=== PATIENT | male | born 1960 | race Caucasian/White ===

== ENCOUNTER 2024-03-18 11:59 | Inpatient (IN) | payer OTHER ==
[2024-03-18 13:40] LABS: VENOUS O2 SATURATION 67.7 % (70-80); VENOUS PCO2 18.3 mmHg (38-52); VENOUS PH 7.006 (7.310-7.410)
[2024-03-18] MEDS: SODIUM CHLORIDE 0.9% 500 ML INFUS.BAG IV ONE (13:43)
[2024-03-18 13:45] LABS: HEMATOCRIT 43.6 % (35.4-49); HEMOGLOBIN 13.1 GM/dL (11.7-16.9); MCH 22.9 pg (25.7-33.7); MEAN CELL VOLUME 76.4 fl (80-96); MEAN PLT VOLUME 8.5 fl (7.5-11.1); PLATELET COUNT 321 10^3/uL (134-434); RBC 5.71 M/mm3 (4.00-5.60); RDW 17.3 % (11.9-15.9)
[2024-03-18 13:45] LABS: VENOUS BASE EXCESS -25.1 mmol/L (-2-2)
[2024-03-18 13:59] LABS: INR 1.16 (0.83-1.09); PROTHROMBIN TIME (PATIENT) 13.3 SEC (9.7-13.0)
[2024-03-18 14:01] LABS: ACTIVATED PTT 36.4 SECONDS (25.2-36.5)
[2024-03-18 14:06] LABS: EPI CELLS 3 /uL (0-25.1); HYALINE CASTS 1 /uL (0-3.1); URINE APPEARANCE CLEAR; URINE BACTERIA 10 /uL (0-1359); URINE BILIRUBIN NEGATIVE (NEGATIVE); URINE COLOR YELLOW; URINE GLUCOSE (UA) 3+ (NEGATIVE); URINE KETONE 4+ (NEGATIVE); URINE LEUK ESTERASE NEGATIVE (NEGATIVE); URINE NITRITE NEGATIVE (NEGATIVE); URINE PROTEIN 1+ (NEGATIVE); URINE RBC 25 /uL (0-23.9); URINE UROBILINOGEN 0.2 mg/dL (0.2-1.0); URINE WBC 4 /uL (0-25.8)
[2024-03-18] MEDS: LACTATED RINGERS SOLUTION 1000 ML INFUS.BAG IV ONE ×2 (14:11→16:33)
[2024-03-18 14:19] LABS: ANISOCYTOSIS 0; HELMET CELLS 0; HOWELL-JOLLY BODIES 0; MACROCYTOSIS 0; OVALOCYTE 0; ROULEAU 0; SICKELED CELLS 0; TARGET CELLS 0; TEAR DROP CELLS 0; TOXIC GRANULATION 0
[2024-03-18 14:22] LABS: LACTIC ACID 4.8 mmol/L (0.4-2.0)
[2024-03-18] MEDS ORDERED: ACETAMINOPHEN INJECTION 100 ML ONE (14:36)
[2024-03-18 14:41] LABS: CALCIUM 9.4 mg/dL (8.5-10.1); CHLORIDE 84 mmol/L (98-107); POTASSIUM 4.3 mmol/L (3.5-5.1); SODIUM 121 mmol/L (136-145)
[2024-03-18 14:43] LABS: ALBUMIN 3.6 g/dl (3.4-5.0); ANION GAP 33 mmol/L (4-13); CO2 5 mmol/L (21-32)
[2024-03-18 14:44] LABS: BLOOD UREA NITROGEN 38.6 mg/dL (7-18)
[2024-03-18] MEDS: ACETAMINOPHEN 1000 MG/100 ML BAG IVPB ONE ×2 (14:45→16:15)
[2024-03-18 14:46] LABS: CREATININE 1.8 mg/dL (0.55-1.3); SGPT/ALT 11 U/L (13-61)
[2024-03-18 14:47] LABS: SGOT/AST 7 U/L (15-37)
[2024-03-18] MEDS ORDERED: VANCOMYCIN 1 GM PREMIX (F) 1 GM/200 ML BAG ONE (14:47)
[2024-03-18] MEDS ORDERED: PIPERACILLIN/TAZOB 4.5 GM 4.5 GM/100 ML BAG IVPB ONE (14:47)
[2024-03-18 14:48] LABS: BILIRUBIN,TOTAL 1.2 mg/dL (0.2-1); TOT PROT 8.9 g/dl (6.4-8.2)
[2024-03-18 14:49] LABS: ALK PHOS 114 U/L (45-117)
[2024-03-18 14:51] LABS: N-TERMINAL BNP 281.6 pg/ml (5-125)
[2024-03-18 15:16] LABS: GLUCOSE,RANDOM 914 mg/dL (74-106); PHOSPHOROUS 8.5 mg/dL (2.5-4.9)
[2024-03-18] MEDS: SODIUM CHLORIDE 0.9% 1000 ML INFUS.BAG IV STA (15:41)
[2024-03-18] MEDS: PIPERACILLIN/TAZOB 4.5 GM 4.5 GM in DEXTROSE 5%-WATER 100 ML IVPB ONE (15:41)
[2024-03-18 15:50] LABS: LACTIC ACID 3.2 mmol/L (0.4-2.0)
[2024-03-18] MEDS: VANCOMYCIN PREMIX 1.5 GM 1,500 MG/300 ML BAG IVPB ONE (16:15)
[2024-03-18] MEDS: VANCOMYCIN HCL 1,500 MG in DEXTROSE 5%-WATER - 500 ML IVPB ONE (16:15)
[2024-03-18] MEDS ORDERED: DEXTROSE 50%-WATER - 25 GM/50 ML VIAL IVPUSH PRN (16:36)
[2024-03-18] MEDS ORDERED: LACTATED RINGERS SOLUTION 1,000 ML with POTASSIUM CHLORIDE 20 MEQ IV ONE (16:39)
[2024-03-18] MEDS ORDERED: INSULIN REGULAR HUMAN 100 UNITS/ML *VIAL ONE ×4 (16:44→16:46)
[2024-03-18] MEDS: INSULIN REGULAR HUMAN 100 UNITS/ML *VIAL* (FOR IVP) IVPUSH ONE (16:50)
[2024-03-18] MEDS: INSULIN REGULAR 100 UNITS in SODIUM CHLORIDE 99 ML IVPB SCH (17:32)
[2024-03-18 18:38] VITALS: BMI 28.1
[2024-03-18] MEDS: POTASSIUM CHLORIDE 20 MEQ in LACTATED RINGERS SOLUTION 1,000 ML IV ONE (18:39)
[2024-03-18] MEDS ORDERED: dilTIAZem HCL 125 MG/25 ML - 25 ML VIAL ONE (18:40)
[2024-03-18] MEDS: dilTIAZem HCL 50 MG/10 ML - 10 ML VIAL IVPUSH ONE ×2 (18:43→19:00)
[2024-03-18] MEDS: LACTATED RINGERS SOLUTION 1,000 ML/1,000 ML INFUS.BAG IV SCH (19:56)
[2024-03-18 20:25] LABS: HIV INTERPRETATION NEGATIVE (NEGATIVE)
[2024-03-18 22:02] LABS: CHLORIDE 96 mmol/L (98-107); POTASSIUM 4.4 mmol/L (3.5-5.1); SODIUM 131 mmol/L (136-145)
[2024-03-18 22:04] LABS: ANION GAP 31 mmol/L (4-13); BLOOD UREA NITROGEN 41.8 mg/dL (7-18); CALCIUM 8.6 mg/dL (8.5-10.1); CO2 4 mmol/L (21-32)
[2024-03-18] MEDS: ENOXAPARIN NA (PORCINE) 40 MG/0.4 ML DISP.SYRIN SQ SCH (22:04)
[2024-03-18 22:05] LABS: LACTIC ACID 2.7 mmol/L (0.4-2.0)
[2024-03-18 22:08] LABS: CREATININE 1.4 mg/dL (0.55-1.3)
[2024-03-18 22:19] LABS: GLUCOSE,RANDOM 710 mg/dL (74-106)
[2024-03-18] MEDS: dilTIAZem HCL 50 MG/10 ML - 10 ML VIAL IVPUSH PRN (22:46)
[2024-03-18] MEDS: SODIUM CHLORIDE 0.9%/KCL 20 MEQ/1,000 ML INFUS.BAG IV SCH (22:50)
[2024-03-18] MEDS ORDERED: MAG HYDROX/AL HYDROX/SIMETH -MYLANTA- ORAL SUSPENSION PO ONE (23:05)
[2024-03-18] MEDS: ZOLPIDEM TARTRATE 5 MG TABLET PO ONE (23:09)
[2024-03-18] MEDS: MAG HYDROX/AL HYDROX/SIMETH 30 ML UNIT-DOSE CUP PO ONE (23:10)
[2024-03-19 01:45] LABS: CHLORIDE 115 mmol/L (98-107); SODIUM 141 mmol/L (136-145)
[2024-03-19 01:46] LABS: BLOOD UREA NITROGEN 33.5 mg/dL (7-18); CO2 8 mmol/L (21-32); GLUCOSE,RANDOM 298 mg/dL (74-106)
[2024-03-19 01:50] LABS: CREATININE 0.9 mg/dL (0.55-1.3)
[2024-03-19 02:40] LABS: ANION GAP 18 mmol/L (4-13); CALCIUM 6.9 mg/dL (8.5-10.1); POTASSIUM 2.5 mmol/L (3.5-5.1)
[2024-03-19] MEDS: KCL 10 MEQ IVPB 10 MEQ/100 ML INFUS.BAG IVPB SCH (02:55)
[2024-03-19] MEDS: POTASSIUM CHLORIDE ORAL LIQUID 20 MEQ/15 ML PO ONE (02:55)
[2024-03-19] MEDS ORDERED: hydrALAZINE HCL 20 MG/ML VIAL ONE (04:56)
[2024-03-19 06:50] LABS: HEMOGLOBIN 13.8 GM/dL (11.7-16.9); MCH 22.9 pg (25.7-33.7); MCHC 32.1 g/dl (32.0-35.9); MEAN CELL VOLUME 71.4 fl (80-96); MEAN PLT VOLUME 7.4 fl (7.5-11.1); PLATELET COUNT 314 10^3/uL (134-434); RBC 6.02 M/mm3 (4.00-5.60); RDW 17.5 % (11.9-15.9); WHITE BLOOD COUNT 20.3 K/mm3 (4.0-10.0)
[2024-03-19 08:03] LABS: POTASSIUM 4.2 mmol/L (3.5-5.1)
[2024-03-19 08:05] LABS: BLOOD UREA NITROGEN 35.8 mg/dL (7-18); CALCIUM 8.6 mg/dL (8.5-10.1); MAGNESIUM 2.1 mg/dL (1.8-2.4)
[2024-03-19 08:08] LABS: CREATININE 1.1 mg/dL (0.55-1.3)
[2024-03-19 08:10] LABS: BILIRUBIN,TOTAL 0.9 mg/dL (0.2-1); TOT PROT 7.4 g/dl (6.4-8.2)
[2024-03-19] MEDS: ONDANSETRON 4 MG/2 ML VIAL IVPUSH PRN (08:12)
[2024-03-19 08:54] LABS: VENOUS BASE EXCESS -18.6 mmol/L (-2-2); VENOUS O2 SATURATION 77.6 % (70-80); VENOUS PCO2 19.2 mmHg (38-52)
[2024-03-19 08:56] LABS: VENOUS PH 7.196 (7.310-7.410)
[2024-03-19] MEDS: CEFTRIAXONE 1 G/50 ML PREMIX 50 ML IVPB SCH (09:20)
[2024-03-19 10:49] LABS: ANISOCYTOSIS 0; HELMET CELLS 0; HOWELL-JOLLY BODIES 0; MACROCYTOSIS 0; OVALOCYTE 0; ROULEAU 0; SICKELED CELLS 0; TARGET CELLS 0; TEAR DROP CELLS 0; TOXIC GRANULATION 0
[2024-03-19] MEDS: methaDONE HCL 10 MG TABLET PO ONE ×2 (10:52→17:22)
[2024-03-19] MEDS: INSULIN REGULAR 100 UNITS in SODIUM CHLORIDE 99 ML IVPB SCH (15:25)
[2024-03-19] MEDS: D5-1/2NS+20 MEQ KCL - 20 MEQ/1,000 ML INFUS.BAG IV SCH (15:29)
[2024-03-19 16:07] LABS: POTASSIUM 3.7 mmol/L (3.5-5.1)
[2024-03-19 16:10] LABS: ALBUMIN 2.9 g/dl (3.4-5.0)
[2024-03-19 16:11] LABS: CALCIUM 8.6 mg/dL (8.5-10.1)
[2024-03-19 16:12] LABS: BLOOD UREA NITROGEN 29.9 mg/dL (7-18)
[2024-03-19 16:14] LABS: PHOSPHOROUS 1.9 mg/dL (2.5-4.9)
[2024-03-19 16:15] LABS: BILIRUBIN,TOTAL 0.6 mg/dL (0.2-1); TOT PROT 7.1 g/dl (6.4-8.2)
[2024-03-19] MEDS: MAGNESIUM 2GM/50ML STERILE WATER IVPB IVPB ONE (17:22)
[2024-03-19] MEDS: NAPH,MB-DB/K PH,MBDB POWDER PACKET PO SCH (17:22)
[2024-03-19] MEDS: INSULIN (LEVEMIR) 100 UNITS/ML UNITS SQ ONE (18:31)
[2024-03-19 21:26] LABS: POTASSIUM 4.1 mmol/L (3.5-5.1)
[2024-03-19 21:28] LABS: BLOOD UREA NITROGEN 24.8 mg/dL (7-18); MAGNESIUM 2.5 mg/dL (1.8-2.4)
[2024-03-19 21:31] LABS: CREATININE 0.9 mg/dL (0.55-1.3); PHOSPHOROUS 2.3 mg/dL (2.5-4.9)
[2024-03-19] MEDS: INSULIN ASPART SLIDING SCALE (NOVOLOG) 1 VIAL SQ SCH (21:32)
[2024-03-19] MEDS ORDERED: INSULIN (LEVEMIR) 100 UNITS/ML UNITS SQ SCH (22:00)
[2024-03-19] MEDS: ALPRAZolam 1 MG TABLET PO PRN (22:12)
[2024-03-20 01:39] LABS: VENOUS BASE EXCESS -10.6 mmol/L (-2-2); VENOUS O2 SATURATION 92.5 % (70-80); VENOUS PCO2 25.1 mmHg (38-52); VENOUS PH 7.345 (7.310-7.410)
[2024-03-20 01:57] LABS: POTASSIUM 3.7 mmol/L (3.5-5.1)
[2024-03-20 01:59] LABS: ALBUMIN 2.6 g/dl (3.4-5.0); CALCIUM 7.9 mg/dL (8.5-10.1)
[2024-03-20 02:00] LABS: BLOOD UREA NITROGEN 19.2 mg/dL (7-18); MAGNESIUM 2.4 mg/dL (1.8-2.4)
[2024-03-20 02:06] LABS: BILIRUBIN,TOTAL 0.6 mg/dL (0.2-1); CREATININE 0.8 mg/dL (0.55-1.3); TOT PROT 6.3 g/dl (6.4-8.2)
[2024-03-20] MEDS ORDERED: INSULIN ASPART SLIDING SCALE (NOVOLOG) 1 VIAL SQ ONE ×2 (02:12→17:05)
[2024-03-20] MEDS: ZOLPIDEM TARTRATE 5 MG TABLET PO ONE (03:29)
[2024-03-20] MEDS: INSULIN (LEVEMIR) 100 UNITS/ML UNITS SQ SCH ×2 (06:08→21:35)
[2024-03-20 06:26] LABS: BASO % 0.3 % (0-2.0); HEMATOCRIT 37.5 % (35.4-49); HEMOGLOBIN 12.1 GM/dL (11.7-16.9); LYMPH % 8.4 % (8-40); MCH 22.7 pg (25.7-33.7); MCHC 32.3 g/dl (32.0-35.9); MEAN CELL VOLUME 70.4 fl (80-96); MEAN PLT VOLUME 6.9 fl (7.5-11.1); MONO % 4.7 % (3.8-10.2); NEUT % 86.6 % (42.8-82.8); PLATELET COUNT 227 10^3/uL (134-434); RBC 5.32 M/mm3 (4.00-5.60); RDW 17.8 % (11.9-15.9); WHITE BLOOD COUNT 13.3 K/mm3 (4.0-10.0)
[2024-03-20 06:51] LABS: MAGNESIUM 2.2 mg/dL (1.8-2.4)
[2024-03-20 06:55] LABS: PHOSPHOROUS 2.1 mg/dL (2.5-4.9)
[2024-03-20] MEDS ORDERED: INSULIN (LEVEMIR) 100 UNITS/ML UNITS SQ SCH (09:19)
[2024-03-20] MEDS: NAPH,MB-DB/K PH,MBDB POWDER PACKET PO SCH ×2 (09:39→21:34)
[2024-03-20] MEDS: methaDONE 40 MG, methaDONE 10 MG PO ONE (09:40)
[2024-03-20] MEDS: LISINOPRIL 20 MG TABLET PO SCH (09:45)
[2024-03-20] MEDS ORDERED: dilTIAZem HCL 50 MG/10 ML - 10 ML VIAL IVPUSH PRN ×2 (10:25→17:35)
[2024-03-20] MEDS ORDERED: ALPRAZolam 1 MG TABLET PO PRN (10:25)
[2024-03-20] MEDS: LISINOPRIL 5 MG TABLET PO ONE (11:31)
[2024-03-20] MEDS: INSULIN (NOVOLOG) ASPART 100 UNITS/ML 10ML VIAL SQ SCH (11:36)
[2024-03-20] MEDS ORDERED: DEXTROSE 50%-WATER - 25 GM/50 ML VIAL IVPUSH PRN (17:35)
[2024-03-20] MEDS: APIXABAN 5 MG TABLET PO SCH (21:34)
[2024-03-20] MEDS: ONDANSETRON 4 MG TABLET PO PRN (21:34)
[2024-03-20] MEDS: INSULIN ASPART SLIDING SCALE (NOVOLOG) 1 VIAL SQ SCH (21:35)
[2024-03-20] MEDS: ALPRAZolam 1 MG TABLET PO PRN (21:45)
[2024-03-20] MEDS ORDERED: APIXABAN 5 MG TABLET PO SCH (22:00)
[2024-03-21] MEDS: INSULIN (NOVOLOG) ASPART 100 UNITS/ML 10ML VIAL SQ SCH (06:05)
[2024-03-21 08:12] LABS: BASO % 0.3 % (0-2.0); EOS % 0.1 % (0-4.5); HEMATOCRIT 40.3 % (35.4-49); HEMOGLOBIN 13.3 GM/dL (11.7-16.9); LYMPH % 20.8 % (8-40); MCH 23.1 pg (25.7-33.7); MEAN CELL VOLUME 70.2 fl (80-96); MEAN PLT VOLUME 7.1 fl (7.5-11.1); MONO % 5.2 % (3.8-10.2); NEUT % 73.6 % (42.8-82.8); PLATELET COUNT 210 10^3/uL (134-434); RBC 5.74 M/mm3 (4.00-5.60); RDW 17.1 % (11.9-15.9)
[2024-03-21 08:38] LABS: CHLORIDE 101 mmol/L (98-107); SODIUM 134 mmol/L (136-145)
[2024-03-21 08:43] LABS: POTASSIUM 2.9 mmol/L (3.5-5.1)
[2024-03-21 08:53] LABS: ANION GAP 8 mmol/L (4-13); BLOOD UREA NITROGEN 10.8 mg/dL (7-18); CALCIUM 8.9 mg/dL (8.5-10.1); CO2 25 mmol/L (21-32); GLUCOSE,RANDOM 204 mg/dL (74-106); MAGNESIUM 2.3 mg/dL (1.8-2.4)
[2024-03-21 08:58] LABS: ALBUMIN 3.2 g/dl (3.4-5.0); ALK PHOS 82 U/L (45-117); BILIRUBIN,TOTAL 1.2 mg/dL (0.2-1); CREATININE 0.6 mg/dL (0.55-1.3); PHOSPHOROUS 1.7 mg/dL (2.5-4.9); SGOT/AST 5 U/L (15-37); SGPT/ALT 9 U/L (13-61); TOT PROT 7.5 g/dl (6.4-8.2)
[2024-03-21] MEDS: methaDONE 40 MG, methaDONE 20 MG PO ONE (09:13)
[2024-03-21] MEDS ORDERED: methaDONE 40 MG, methaDONE 20 MG PO ONE (10:00)
[2024-03-21] MEDS ORDERED: LISINOPRIL 5 MG TABLET PO SCH (10:00)
[2024-03-21] MEDS ORDERED: PRAZOSIN HCL 1 MG CAPSULE PO SCH (10:00)
[2024-03-21] MEDS: POTASSIUM CHLORIDE TABS 20 MEQ TABLET.ER (FP) PO ONE (10:57)
[2024-03-21] MEDS: PRAZOSIN HCL 1 MG CAPSULE PO SCH (10:58)
[2024-03-21] MEDS ORDERED: dilTIAZem HCL 50 MG/10 ML - 10 ML VIAL IVPB PRN (13:15)
[2024-03-21] MEDS: LACTATED RINGERS SOLUTION 1,000 ML/1,000 ML INFUS.BAG IV ONE (13:21)
[2024-03-21] MEDS: NAPH,MB-DB/K PH,MBDB POWDER PACKET PO SCH (15:28)
[2024-03-21] MEDS: POTASSIUM CHLORIDE ORAL LIQUID 20 MEQ/15 ML PO ONE (21:56)
[2024-03-22 09:16] LABS: BASO % 0.7 % (0-2.0); EOS % 0.7 % (0-4.5); HEMOGLOBIN 10.9 GM/dL (11.7-16.9); LYMPH % 28.4 % (8-40); MCH 22.9 pg (25.7-33.7); MCHC 32.9 g/dl (32.0-35.9); MEAN CELL VOLUME 69.7 fl (80-96); MEAN PLT VOLUME 6.6 fl (7.5-11.1); MONO % 6.2 % (3.8-10.2); PLATELET COUNT 123 10^3/uL (134-434); RBC 4.74 M/mm3 (4.00-5.60); WHITE BLOOD COUNT 5.6 K/mm3 (4.0-10.0)
[2024-03-22 09:41] LABS: POTASSIUM 3.4 mmol/L (3.5-5.1)
[2024-03-22 09:54] LABS: BLOOD UREA NITROGEN 14.4 mg/dL (7-18)
[2024-03-22 09:56] LABS: CALCIUM 8.5 mg/dL (8.5-10.1)
[2024-03-22 09:57] LABS: ALBUMIN 2.8 g/dl (3.4-5.0); CREATININE 0.6 mg/dL (0.55-1.3); MAGNESIUM 2.1 mg/dL (1.8-2.4)
[2024-03-22 10:00] LABS: TOT PROT 6.2 g/dl (6.4-8.2)
[2024-03-22] MEDS ORDERED: methaDONE 40 MG, methaDONE 30 MG PO ONE (10:00)
[2024-03-22] MEDS ORDERED: dilTIAZem HCL 30 MG TABLET PO SCH (10:00)
[2024-03-22] MEDS: methaDONE 40 MG, methaDONE 30 MG PO ONE (10:01)
[2024-03-22] MEDS: dilTIAZem HCL 30 MG TABLET PO SCH (10:02)
[2024-03-22] MEDS: POTASSIUM CHLORIDE TABS 20 MEQ TABLET.ER (FP) PO ONE (12:18)
[2024-03-23 02:41] VITALS: BP 126/72; PULSE 80; RESP 18; TEMP 97.8
[2024-03-23 08:23] LABS: BASO % 0.2 % (0-2.0); EOS % 1.4 % (0-4.5); HEMATOCRIT 34.4 % (35.4-49); HEMOGLOBIN 11.4 GM/dL (11.7-16.9); LYMPH % 34.1 % (8-40); MCHC 33.1 g/dl (32.0-35.9); MEAN CELL VOLUME 69.3 fl (80-96); MEAN PLT VOLUME 7.2 fl (7.5-11.1); MONO % 4.7 % (3.8-10.2); NEUT % 59.6 % (42.8-82.8); PLATELET COUNT 123 10^3/uL (134-434); RBC 4.96 M/mm3 (4.00-5.60); RDW 16.9 % (11.9-15.9); WHITE BLOOD COUNT 5.2 K/mm3 (4.0-10.0)
[2024-03-23 08:31] LABS: HEMATOCRIT 34.3 % (35.4-49); HEMOGLOBIN 11.4 GM/dL (11.7-16.9); MCHC 33.3 g/dl (32.0-35.9); MEAN CELL VOLUME 69.1 fl (80-96); PLATELET COUNT 127 10^3/uL (134-434); RBC 4.97 M/mm3 (4.00-5.60); RDW 16.8 % (11.9-15.9); WHITE BLOOD COUNT 5.3 K/mm3 (4.0-10.0)
[2024-03-23 08:32] LABS: POTASSIUM 3.8 mmol/L (3.5-5.1)
[2024-03-23 08:37] LABS: ALBUMIN 2.8 g/dl (3.4-5.0); BLOOD UREA NITROGEN 10.5 mg/dL (7-18)
[2024-03-23 08:38] LABS: MAGNESIUM 1.8 mg/dL (1.8-2.4)
[2024-03-23 08:40] LABS: CREATININE 0.7 mg/dL (0.55-1.3)
[2024-03-23 08:42] LABS: BILIRUBIN,TOTAL 1.2 mg/dL (0.2-1); TOT PROT 6.4 g/dl (6.4-8.2)
[2024-03-23] MEDS: methaDONE HCL 40 MG DISPERSABLE TABLET PO ONE (09:44)
[2024-03-23] MEDS ORDERED: methaDONE HCL 40 MG DISPERSABLE TABLET PO ONE (10:00)
[2024-03-23 22:21] LABS: FIBROSIS SCORE. 0.36 (0.00-0.21); HCV ALPHA 2 MACRO CHART 182 mg/dL (110-276); NECRO.INFLAM ACT.SCORE 0.02 (0.00-0.17); NECROINFLAM. ACTIVITY GRADE A0-No activity (.)
[2024-03-24] MEDS ORDERED: methaDONE 80 MG, methaDONE 10 MG PO ONE ×2 (10:00)
== END 2024-03-23 13:48 | disposition home or self-care (01) | DRG 420 ==
LOC: JER 11:59 → JERBED 15:49 → JICU 18:22 → J7W 03-20 14:36
PROVIDERS: ADMIT Internal Medicine Pulmonary Disease; ATTEND Internal Medicine
DX: E11.10 Type 2 diabetes mellitus with ketoacidosis without coma (principal); N17.9 Acute kidney failure, unspecified; R65.10 Systemic inflammatory response syndrome (SIRS) of non-infectious origin without acute organ dysfunction; I48.91 Unspecified atrial fibrillation; E83.39 Other disorders of phosphorus metabolism; I10 Essential (primary) hypertension; F11.23 Opioid dependence with withdrawal; E87.6 Hypokalemia
CPT/HCPCS: 0241U-QW; 36415; 71045-TC-FY; 74177-TC; 80048; 80053; 81003; 82010; 82172; 82803; 82962; 82977; 83010; 83036; 83605; 83690; 83735; 83880; 83883; 84100; 84439; 84443; 84460; 84481; 84484; 85025; 85027; 85610; 85730; 86803; 86850; 86900; 86901; 87040; 87086; 87389; 87481; 93005; 93010; 93306-TC; 97116-GP; 97161-GP; 99291; J0131

== ENCOUNTER 2024-07-19 05:38 | Inpatient (IN) | payer OTHER ==
[2024-07-19] MEDS: LACTATED RINGERS SOLUTION 1000 ML INFUS.BAG IV ONE (06:11)
[2024-07-19 06:31] LABS: VENOUS BASE EXCESS -4.2 mmol/L (-2-2); VENOUS O2 SATURATION 98.7 % (70-80); VENOUS PH 7.358 (7.310-7.410)
[2024-07-19 06:44] LABS: CHLORIDE 97 mmol/L (98-107); POTASSIUM 3.4 mmol/L (3.5-5.1); SODIUM 132 mmol/L (136-145)
[2024-07-19 06:45] LABS: MAGNESIUM 2.1 mg/dL (1.8-2.4)
[2024-07-19] MEDS ORDERED: VANCOMYCIN/WATER 1250 MG 1,250 MG/250 ML BAG IVPB ONE (06:45)
[2024-07-19 06:46] LABS: CALCIUM 8.4 mg/dL (8.5-10.1)
[2024-07-19 06:47] LABS: ALBUMIN 2.9 g/dl (3.4-5.0); ANION GAP 11 mmol/L (4-13); BLOOD UREA NITROGEN 14.5 mg/dL (7-18); CO2 24 mmol/L (21-32)
[2024-07-19 06:50] LABS: CREATININE 1.3 mg/dL (0.55-1.3); SGOT/AST 13 U/L (15-37); SGPT/ALT 8 U/L (13-61)
[2024-07-19 06:51] LABS: BILIRUBIN,TOTAL 0.7 mg/dL (0.2-1)
[2024-07-19 06:52] LABS: TOT PROT 6.7 g/dl (6.4-8.2)
[2024-07-19 06:53] LABS: ALK PHOS 86 U/L (45-117)
[2024-07-19] MEDS: VANCOMYCIN/WATER 1250 MG 1,250 MG/250 ML BAG IVPB ONE (06:55)
[2024-07-19 07:01] LABS: GLUCOSE,RANDOM 539 mg/dL (74-106)
[2024-07-19] MEDS ORDERED: POTASSIUM CHLORIDE ORAL LIQUID 20 MEQ/15 ML ONE (07:06)
[2024-07-19] MEDS ORDERED: INSULIN REGULAR HUMAN 100 UNITS/ML *VIAL ONE ×3 (07:07→07:55)
[2024-07-19 07:13] LABS: INR 1.3 (0.83-1.09); PROTHROMBIN TIME (PATIENT) 14.3 SEC (9.7-13.0)
[2024-07-19 07:15] LABS: ACTIVATED PTT 30.2 SECONDS (25.2-36.5)
[2024-07-19] MEDS: INSULIN REGULAR HUMAN 100 UNITS/ML *VIAL SQ ONE ×2 (07:15→07:59)
[2024-07-19] MEDS: POTASSIUM CHLORIDE ORAL LIQUID 20 MEQ/15 ML PO ONE (07:15)
[2024-07-19 07:24] LABS: ABSOLUTE IMMATURE GRANULOCYTES 0.04 x10^3/uL (0.0-0.031); BASOPHILS # 0.02 x10^3/uL (0.01-0.08); EOSINOPHIL % 0.6 % (0.8-7.0); EOSINOPHILS # 0.04 x10^3/uL (0.04-0.54); HEMATOCRIT 26.5 % (40.1-51.0); HEMOGLOBIN 8.5 g/dL (13.7-17.5); MCHC 32.1 g/dl (32.3-36.5); MEAN CELL VOLUME 72.4 fl (79.0-92.2); MEAN PLT VOLUME 10.4 fl (9.4-12.4); MONOCYTE # 0.46 x10^3/uL (0.30-0.82); MONOCYTE % 7.4 % (5.3-12.2); PLATELET COUNT 157 x10^3/uL (163-337); RDW 16.5 % (12.2-16.4)
[2024-07-19] MEDS ORDERED: ONDANSETRON 4 MG/2 ML VIAL ONE (07:44)
[2024-07-19] MEDS: ONDANSETRON 4 MG/2 ML VIAL IVPUSH ONE (07:51)
[2024-07-19] MEDS: LACTATED RINGERS SOLUTION 1,000 ML/1,000 ML INFUS.BAG IV SCH (09:25)
[2024-07-19 09:37] LABS: CALCIUM 8.2 mg/dL (8.5-10.1); CHLORIDE 96 mmol/L (98-107); SODIUM 131 mmol/L (136-145)
[2024-07-19 09:38] LABS: ANION GAP 11 mmol/L (4-13); BLOOD UREA NITROGEN 10.9 mg/dL (7-18); CO2 25 mmol/L (21-32)
[2024-07-19 09:47] LABS: CREATININE 1.1 mg/dL (0.55-1.3); GLUCOSE,RANDOM 529 mg/dL (74-106)
[2024-07-19 10:27] LABS: MAGNESIUM 1.9 mg/dL (1.8-2.4)
[2024-07-19 10:31] LABS: IRON SERUM 20 ug/dL (50-175); TOTAL IRON BINDING CAPACITY 218 ug/dL (250-450)
[2024-07-19] MEDS ORDERED: BUPRENORPHINE/NALOXONE 8 MG/2 MG FILM PACKET ONE (10:42)
[2024-07-19] MEDS: BUPRENORPHINE/NALOXONE 8 MG/2 MG FILM PACKET SL ONE (10:49)
[2024-07-19] MEDS ORDERED: hydrOXYzine PAMOATE 25 MG CAPSULE (FP) PO PRN (11:49)
[2024-07-19] MEDS ORDERED: INSULIN ASPART SLIDING SCALE (NOVOLOG) 1 VIAL SQ ONE (12:03)
[2024-07-19] MEDS: INSULIN ASPART SLIDING SCALE (NOVOLOG) 1 VIAL SQ SCH (12:10)
[2024-07-19] MEDS ORDERED: dilTIAZem HCL 60 MG TABLET ONE (14:24)
[2024-07-19] MEDS: dilTIAZem HCL 60 MG TABLET PO SCH (14:26)
[2024-07-19 16:13] VITALS: BMI 28.7
[2024-07-19] MEDS: PRAZOSIN HCL 1 MG CAPSULE PO SCH (17:13)
[2024-07-19] MEDS: VANCOMYCIN/WATER 1250 MG 1,250 MG/250 ML BAG IVPB SCH (17:20)
[2024-07-19] MEDS ORDERED: VANCOMYCIN/WATER 1250 MG 1,250 MG/250 ML BAG IVPB SCH (18:00)
[2024-07-19] MEDS: LORazepam 1 MG TABLET PO PRN (18:06)
[2024-07-19] MEDS ORDERED: QUEtiapine FUMARATE 25 MG TABLET ONE (21:56)
[2024-07-19] MEDS ORDERED: QUEtiapine FUMARATE 100 MG TABLET (FP) PO SCH (22:00)
[2024-07-19] MEDS: INSULIN GLARGINE (LANTUS) 100 UNITS/ML UNITS SQ SCH (22:07)
[2024-07-19] MEDS: QUEtiapine FUMARATE 50 MG TABLET PO SCH (22:08)
[2024-07-20 07:01] LABS: HEMATOCRIT 26.7 % (40.1-51.0); HEMOGLOBIN 8.2 g/dL (13.7-17.5); MCHC 30.7 g/dl (32.3-36.5); MEAN CELL VOLUME 74.6 fl (79.0-92.2); MEAN PLT VOLUME 10.1 fl (9.4-12.4); RDW 16.8 % (12.2-16.4)
[2024-07-20 07:24] LABS: POTASSIUM 4.1 mmol/L (3.5-5.1)
[2024-07-20 07:31] LABS: BLOOD UREA NITROGEN 12.2 mg/dL (7-18)
[2024-07-20 07:32] LABS: ALBUMIN 2.6 g/dl (3.4-5.0); CALCIUM 8.1 mg/dL (8.5-10.1); MAGNESIUM 1.6 mg/dL (1.8-2.4)
[2024-07-20 07:35] LABS: CREATININE 0.8 mg/dL (0.55-1.3); PHOSPHOROUS 3.6 mg/dL (2.5-4.9)
[2024-07-20 07:36] LABS: BILIRUBIN,TOTAL 0.8 mg/dL (0.2-1); TOT PROT 6.4 g/dl (6.4-8.2)
[2024-07-20 08:49] LABS: PLATELET COUNT 154 x10^3/uL (163-337)
[2024-07-20] MEDS: MAGNESIUM OXIDE 400 MG TABLET (FP) PO ONE ×2 (10:29→11:31)
[2024-07-20] MEDS: methaDONE HCL 40 MG DISPERSABLE TABLET PO ONE (10:29)
[2024-07-20] MEDS: traMADol HCL 50 MG TABLET PO PRN (13:51)
[2024-07-20] MEDS: INSULIN ASPART SLIDING SCALE (NOVOLOG) 1 VIAL SQ SCH (16:40)
[2024-07-20] MEDS ORDERED: QUEtiapine FUMARATE 25 MG TABLET ONE (21:00)
[2024-07-20] MEDS: HEPARIN NA (PORCINE) 5,000 UNITS/ML 1ML VIAL SQ SCH (21:10)
[2024-07-21] MEDS: VANCOMYCIN 1 GM PREMIX (F) 1 GM/200 ML BAG IVPB SCH (05:38)
[2024-07-21 07:01] LABS: ABSOLUTE IMMATURE GRANULOCYTES 0.04 x10^3/uL (0.0-0.031); BASOPHILS # 0.02 x10^3/uL (0.01-0.08); EOSINOPHIL % 2.1 % (0.8-7.0); EOSINOPHILS # 0.12 x10^3/uL (0.04-0.54); HEMATOCRIT 24.5 % (40.1-51.0); HEMOGLOBIN 7.7 g/dL (13.7-17.5); MCHC 31.4 g/dl (32.3-36.5); MEAN CELL VOLUME 72.3 fl (79.0-92.2); MEAN PLT VOLUME 9.2 fl (9.4-12.4); MONOCYTE # 0.36 x10^3/uL (0.30-0.82); MONOCYTE % 6.3 % (5.3-12.2); PLATELET COUNT 178 x10^3/uL (163-337); RDW 16.4 % (12.2-16.4)
[2024-07-21 07:20] LABS: CHLORIDE 87 mmol/L (98-107); POTASSIUM 3.7 mmol/L (3.5-5.1); SODIUM 123 mmol/L (136-145)
[2024-07-21] MEDS ORDERED: methaDONE HCL 40 MG DISPERSABLE TABLET PO ONE (07:22)
[2024-07-21 07:28] LABS: ALBUMIN 2.4 g/dl (3.4-5.0); BLOOD UREA NITROGEN 10.2 mg/dL (7-18)
[2024-07-21 07:30] LABS: ANION GAP 8 mmol/L (4-13); CO2 28 mmol/L (21-32)
[2024-07-21 07:31] LABS: CALCIUM 7.8 mg/dL (8.5-10.1); CREATININE 0.9 mg/dL (0.55-1.3); MAGNESIUM 1.9 mg/dL (1.8-2.4); SGOT/AST 7 U/L (15-37); SGPT/ALT < 6 U/L (13-61)
[2024-07-21 07:33] LABS: BILIRUBIN,TOTAL 1.2 mg/dL (0.2-1)
[2024-07-21 07:34] LABS: ALK PHOS 68 U/L (45-117)
[2024-07-21 07:51] LABS: IRON SERUM 21 ug/dL (50-175); TOTAL IRON BINDING CAPACITY 193 ug/dL (250-450)
[2024-07-21 08:01] LABS: GLUCOSE,RANDOM 558 mg/dL (74-106)
[2024-07-21] MEDS: methaDONE HCL 40 MG DISPERSABLE TABLET PO ONE (10:17)
[2024-07-21] MEDS: oxyCODONE HCL 5 MG TABLET PO PRN (15:53)
[2024-07-21] MEDS: IRON SUCROSE INJECTION 100 MG in SODIUM CHLORIDE 95 ML IVPB ONE (17:43)
[2024-07-21] MEDS: SODIUM CHLORIDE 0.9%/KCL 20 MEQ/1,000 ML INFUS.BAG IV SCH (17:43)
[2024-07-21] MEDS ORDERED: QUEtiapine FUMARATE 25 MG TABLET ONE (22:08)
[2024-07-22 10:55] LABS: ABSOLUTE IMMATURE GRANULOCYTES 0.04 x10^3/uL (0.0-0.031); BASOPHILS # 0.02 x10^3/uL (0.01-0.08); EOSINOPHIL % 1.8 % (0.8-7.0); EOSINOPHILS # 0.12 x10^3/uL (0.04-0.54); HEMATOCRIT 32.4 % (40.1-51.0); HEMOGLOBIN 10.1 g/dL (13.7-17.5); MCHC 31.2 g/dl (32.3-36.5); MEAN CELL VOLUME 74.5 fl (79.0-92.2); MEAN PLT VOLUME 9.1 fl (9.4-12.4); PLATELET COUNT 225 x10^3/uL (163-337); RDW 16.4 % (12.2-16.4)
[2024-07-22 11:09] LABS: INR 1.25 (0.83-1.09); PROTHROMBIN TIME (PATIENT) 13.7 SEC (9.7-13.0)
[2024-07-22 11:20] LABS: POTASSIUM 4.2 mmol/L (3.5-5.1)
[2024-07-22 11:25] LABS: BLOOD UREA NITROGEN 14.3 mg/dL (7-18); MAGNESIUM 2.3 mg/dL (1.8-2.4)
[2024-07-22 11:28] LABS: CREATININE 0.9 mg/dL (0.55-1.3)
[2024-07-22 11:30] LABS: BILIRUBIN,TOTAL 1.5 mg/dL (0.2-1); TOT PROT 7.6 g/dl (6.4-8.2)
[2024-07-22 12:22] LABS: ALBUMIN 2.9 g/dl (3.4-5.0)
[2024-07-22 14:07] VITALS: TEMP 97.9
[2024-07-22] MEDS: INSULIN (NOVOLOG) ASPART 100 UNITS/ML 10ML VIAL SQ SCH (17:11)
[2024-07-22] MEDS: INSULIN ASPART SLIDING SCALE (NOVOLOG) 1 VIAL SQ SCH (17:45)
[2024-07-22 18:36] VITALS: BP 124/71; PULSE 81; RESP 17
[2024-07-22] MEDS ORDERED: INSULIN GLARGINE (LANTUS) 100 UNITS/ML UNITS SQ SCH (22:00)
[2024-07-22] MEDS ORDERED: INSULIN ASPART SLIDING SCALE (NOVOLOG) 1 VIAL SQ SCH (22:00)
== END 2024-07-22 20:39 | disposition left against medical advice (07) | DRG 420 ==
LOC: JER 05:38 → JERBED 07:32 → J4S 15:01
PROVIDERS: ADMIT Student in an Organized Health Care Education/Training Program; ATTEND Internal Medicine
PROC: 3E033GC Introduction of Other Therapeutic Substance into Peripheral Vein, Percutaneous Approach (ICD-10-PCS; principal; 2024-07-19)
DX: E11.65 Type 2 diabetes mellitus with hyperglycemia (principal); D69.6 Thrombocytopenia, unspecified; L02.414 Cutaneous abscess of left upper limb; L03.114 Cellulitis of left upper limb; I48.91 Unspecified atrial fibrillation; E86.0 Dehydration; E11.40 Type 2 diabetes mellitus with diabetic neuropathy, unspecified; E87.1 Hypo-osmolality and hyponatremia; I10 Essential (primary) hypertension; R55 Syncope and collapse; D50.9 Iron deficiency anemia, unspecified; E87.6 Hypokalemia; F11.10 Opioid abuse, uncomplicated; F19.90 Other psychoactive substance use, unspecified, uncomplicated
CPT/HCPCS: 0241U-QW; 36415; 70450-TC; 71045-TC-FY; 73090-TC-LT-FY; 73090-TC-RT-FY; 76882-TC-RT-FY; 80048; 80053; 82010; 82272; 82607; 82728; 82803; 82962; 83036; 83540; 83550; 83735; 84100; 84484; 85025; 85027; 85610; 85730; 86850; 86900; 86901; 86922; 87040; 93005; 93010; 93971; 97116-GP; 97161-GP; 99285-25; J1644; J1756

== ENCOUNTER 2024-07-25 16:08 | Emergency (ER) | payer OTHER ==
[2024-07-25 16:14] VITALS: BP 139/69; PULSE 65; RESP 18; TEMP 98.3; BMI 28.7
[2024-07-25] MEDS ORDERED: SULFAMETHOXAZOLE/TRIMETHOPRIM 800MG/160MG D.S. TABLET ONE (16:55)
[2024-07-25] MEDS ORDERED: ONDANSETRON *ODT* 4 MG TABLET ONE (16:55)
[2024-07-25] MEDS: SULFAMETHOXAZOLE/TRIMETHOPRIM 800MG/160MG D.S. TABLET PO ONE ×2 (16:59)
[2024-07-25] MEDS: LIDOCAINE HCL 1%, 10 MG/ML (50 mL VIAL) SQ ONE (16:59)
[2024-07-25] MEDS: ONDANSETRON 4 MG TABLET PO ONE (16:59)
[2024-07-25] MEDS ORDERED: ACETAMINOPHEN 325 MG TABLET (FP) ONE (17:40)
[2024-07-25] MEDS: ACETAMINOPHEN 500 MG TABLET (FP) PO ONE (17:49)
== END 2024-07-25 17:50 | disposition home or self-care (01) ==
LOC: JER 16:08
PROC: 0H9CX0Z Drainage of Left Upper Arm Skin with Drainage Device, External Approach (ICD-10-PCS; principal; 2024-07-25)
DX: L02.414 Cutaneous abscess of left upper limb (principal)
CPT/HCPCS: 99283-25